=== PATIENT | female | born 1970 | race Caucasian/White ===

== ENCOUNTER 2017-04-20 14:21 | Observation (INO) | payer OTHER ==
[~2017-04-20] VITALS: Ht 175.3 cm; Wt 82.1 kg
[2017-04-20 15:41] LABS: HEMATOCRIT 23.7 % (36.0-46.0); MCH 14.4 PG (29.0-34.0); MCHC 24.9 G/DL (30.0-36.0); MCV 57.7 FL (83-99); MEAN PLAT.VOLUME 9.2 uM^3 (9.5-12.4); PLATELET COUNT 347 K/uL (156-360); RBC DIS.WIDTH-CV 21.1 % (11.8-14.6); RBC DIS.WIDTH-SD 42.2 % (39-53); RED BLOOD COUNT 4.11 M/uL (3.80-5.20)
[2017-04-20 15:44] LABS: CHLORIDE 106 mEq/L (99-109); POTASSIUM 3.8 mEq/L (3.7-5.4); SODIUM 139 mEq/L (136-147)
[2017-04-20 15:46] LABS: GLUCOSE 108 mg/dL (70-99)
[2017-04-20 15:47] LABS: ANION GAP 15 MEQ/L (2-14)
[2017-04-20 15:50] LABS: GFR ESTIMATE (CALCULATED) > 59 mL/min/
[2017-04-20 15:51] LABS: UREA NITROGEN (BUN) 11 mg/dL (9-23)
[2017-04-20 18:50] VITALS: BP 145/84
[2017-04-20] MEDS ORDERED: DOXYCYCLINE HYC50 MG PO (19:06)
[2017-04-20 19:08] VITALS: BP 133/81
[2017-04-20 20:00] VITALS: BP 105/66
[2017-04-20 21:00] VITALS: BP 131/81
[2017-04-20 23:16] VITALS: BP 135/75
[2017-04-20 23:45] VITALS: BP 129/77
[2017-04-21 00:11] VITALS: BP 127/72
[2017-04-21 01:11] VITALS: BP 130/75
[2017-04-21 01:56] VITALS: BP 126/74
[2017-04-21 04:10] VITALS: BP 114/68
[2017-04-21 04:14] LABS: IRON 13 MCG/DL (35-150); SAMPLE HEMOLYSIS CHECK 0; SAMPLE ICTERIC CHECK 0; SAMPLE LIPEMIA CHECK 0
[2017-04-21 06:43] LABS: HEMATOCRIT 27.3 % (36.0-46.0); MCHC 28.2 G/DL (30.0-36.0); MEAN PLAT.VOLUME 9.2 uM^3 (9.5-12.4); PLATELET COUNT 299 K/uL (156-360); RBC DIS.WIDTH-CV 27.9 % (11.8-14.6); RBC DIS.WIDTH-SD 61.4 % (39-53); RED BLOOD COUNT 4.31 M/uL (3.80-5.20); WHITE BLOOD COUNT 2.8 K/uL (4.1-10.2)
[2017-04-21 06:49] LABS: MCH 17.9 PG (29.0-34.0); MCV 63.3 FL (83-99)
[2017-04-21 07:02] LABS: ALKALINE PHOSPHATASE 48 IU/L (3-129); ANION GAP 6 MEQ/L (2-14); CHLORIDE 108 MEQ/L (99-109); GFR ESTIMATE (CALCULATED) > 59 mL/min/; GLUCOSE 95 mg/dL (70-99); POTASSIUM 4.2 MEQ/L (3.7-5.4); SAMPLE HEMOLYSIS CHECK 0; SAMPLE ICTERIC CHECK 0; SAMPLE LIPEMIA CHECK 0; SODIUM 138 MEQ/L (136-147); UREA NITROGEN (BUN) 10 mg/dL (9-23)
[2017-04-21 07:10] LABS: TOTAL BILIRUBIN 0.7 MG/DL (0.0-1.0)
[2017-04-21 08:03] VITALS: BP 122/67
[2017-04-21 10:34] LABS: FERRITIN 7 NG/ML (10-291)
[2017-04-21 11:47] VITALS: BP 120/77
[2017-04-21] MEDS ORDERED: FERROUS SULFAT325 MG PO ×2 (12:31→12:34)
[2017-04-21] MEDS ORDERED: ONDANSETRON ODT4 MG PO (12:34)
== END 2017-04-21 15:45 | disposition home or self-care (01) ==
LOC: EME 14:21 → EDOF 20:40 → 2EAST 20:40 → ENRESERV 20:47 → 2EAST 22:55
PROVIDERS: Internal Medicine
PROC: 30233N1 Transfusion of Nonautologous Red Blood Cells into Peripheral Vein, Percutaneous Approach (ICD-10-PCS; principal; 2017-04-20)
DX: D50.9 Iron deficiency anemia, unspecified (principal); R10.9 Unspecified abdominal pain; L71.9 Rosacea, unspecified; Z86.19 Personal history of other infectious and parasitic diseases; M25.569 Pain in unspecified knee
CPT/HCPCS: 74177; 80048; 80053; 82728; 83021 90; 83540; 84466; 85027; 86900; 86901; 86920; 99281; 99285; G0378; J7030; J7040; P9016